=== PATIENT | male | born 1940 | race Two or more races ===

== ENCOUNTER 2017-08-17 18:22 | Inpatient (IN) | payer OTHER ==
[~2017-08-17] VITALS: Ht 175.3 cm; Wt 71.2 kg
[2017-08-17 19:00] LABS: Basophils # (auto) 0.1 uL; Eosinophils # (auto) 0.3 uL; Eosinophils % (auto) 3.7 % (0.0-7.0); Hematocrit 44.7 % (41.0-53.0); Hemoglobin 15.3 g/dL (13.5-17.5); Lymphocytes # (auto) 2.5 uL; Lymphocytes % (auto) 33.4 % (10.0-50.0); Mean Corpuscular Hemoglobin 31.6 pg (28.0-32.0); Mean Corpuscular Hgb Conc. 34.2 g/dL (32.0-36.0); Mean Corpuscular Volume 92.6 fL (80.0-100.0); Monocytes # (auto) 0.7 uL; Monocytes % (auto) 8.8 % (0.0-12.0); Neutrophils % (auto) 53.1 % (37.0-80.0); Nucleated Red Blood Cells % 0.2 %; Platelet Count (auto) 171 10^3/uL (140-450); Red Blood Cells 4.83 10^6/uL (4.5-5.90); Red Cell Distribution Width 13.6 % (11.8-14.3); White Blood Cell 7.5 10^3/uL (4.4-10.8)
[2017-08-17 19:52] LABS: Alanine Aminotransferase 19 U/L (16-61); Albumin 3.8 g/dL (3.4-5.0); Alkaline Phosphatase 70 U/L (45-117); Anion Gap 8 (5-15); Aspartate Aminotransferase 15 U/L (15-37); Bilirubin, Total 0.3 mg/dL (0.2-1.0); Blood Urea Nitrogen 20 mg/dL (7-18); Calcium 8.9 mg/dL (8.5-10.1); Carbon Dioxide 27 mmol/L (21-32); Chloride 106 mmol/L (98-107); GFR African American 83 mL/min; GFR Non-African American 69 mL/min; Glucose 102 mg/dL (74-106); Magnesium 2.7 mg/dL (1.6-2.6); Potassium 4.4 mmol/L (3.5-5.1); Sodium 141 mmol/L (136-145); Total Protein 7.6 g/dL (6.4-8.2)
[2017-08-18] MEDS ORDERED: ACETAMINOPHEN 325 MG TAB PO PRN (01:30)
[2017-08-18] MEDS ORDERED: NITROGLYCERIN 0.4 MG SL TAB SL PRN (01:30)
[2017-08-18] MEDS ORDERED: TEMAZEPAM 15 MG CAP PO PRN (01:30)
[2017-08-18] MEDS ORDERED: hydrALAZINE HCL 25 MG TAB PO PRN (01:30)
[2017-08-18] MEDS ORDERED: HYDROcodone-ACET 5/325MG TAB PO PRN (01:30)
[2017-08-18] MEDS ORDERED: MORPHINE SULF(PF) 0.5MG/ML 10ML VIAL IV PRN (01:30)
[2017-08-18] MEDS ORDERED: ONDANSETRON HCL 4 MG/2 ML VIAL IV PRN (01:30)
[2017-08-18 05:00] VITALS: BP 145/80
[2017-08-18] MEDS ORDERED: CARV25TA PO (05:11)
[2017-08-18] MEDS ORDERED: FAMOTIDINE 20 MG TAB PO SCH (10:00)
[2017-08-18] MEDS ORDERED: ENOXAPARIN SOD 40 MG/0.4 ML SYRINGE SC SCH (10:00)
[2017-08-18 10:18] VITALS: BP 126/67
[2017-08-18 13:24] VITALS: BP 140/83
[2017-08-18 17:32] VITALS: BP 136/86
== END 2017-08-18 19:13 | disposition home or self-care (01) | DRG 310 ==
LOC: EDBD 18:22 → ER 18:22 → TELE 18:23 → TELE-EAST 08-18 04:30
PROVIDERS: ADMIT Nurse Practitioner; ATTEND Internal Medicine Geriatric Medicine
DX: R00.1 Bradycardia, unspecified (principal); E83.41 Hypermagnesemia; I10 Essential (primary) hypertension; N28.9 Disorder of kidney and ureter, unspecified; Z82.3 Family history of stroke; Z80.6 Family history of leukemia; Z87.442 Personal history of urinary calculi; Z88.0 Allergy status to penicillin
CPT/HCPCS: 36415; 71045; 80053; 83735; 84484; 85025; 93005; 93306

== ENCOUNTER 2018-09-26 08:44 | Emergency (ER) | payer MEDICARE, OTHER ==
[~2018-09-26] VITALS: Ht 172.7 cm; Wt 68.5 kg
[2018-09-26 08:54] VITALS: BP 119/55
[2018-09-26] MEDS ORDERED: cefTRIAXone SOD 1,000 MG VL IM ONE (09:45)
[2018-09-26] MEDS ORDERED: LACTULOSE 20Gm/30ML SOLN PO ONE (10:15)
== END 2018-09-26 10:45 | disposition home or self-care (01) ==
LOC: MERGE 08:48 → ER 08:48
DX: N39.0 Urinary tract infection, site not specified (principal); K59.00 Constipation, unspecified; I10 Essential (primary) hypertension; Z88.0 Allergy status to penicillin
CPT/HCPCS: 81002; 96372; 99283; J0696